=== PATIENT | male | born 1975 | race African-American/Black ===

== ENCOUNTER 2019-06-03 17:26 | Inpatient (IN) | payer OTHER ==
[~2019-06-03] VITALS: Ht 177.8 cm; Wt 89.8 kg
[~2019-06-03 17:26] MED LIST: ALEVE220 MG PO; APAP/CODEINE ELI5 M1; ASPIRIN325; FLEXERIL PO; LISINOPRIL10 MG PO; MOBIC15 MG PO; OXYCODONE HCL10 MG; OXYCONTIN10 M1; PERCOCET 5-3251 EACH PO; PHENERGAN 25 MG25 M1 PO; ZOFRAN ODT4 MG PO
[2019-06-03 17:41] VITALS: BP 166/107
[2019-06-03] MEDS ORDERED: HYDROCHLOROTHIA25 M2 PO (17:45)
--- NOTE | 2019-06-03 18:42 | NUR ---
PT LEFT THE UNIT WITH TRANSPORT TO RADIOLOGY.
[2019-06-03 18:43] LABS: HEMATOCRIT 35.8 % (42.0-52.0); HEMOGLOBIN 12.3 gm/dL (14.0-18.0); MCH 29.7 pg (26.0-34.0); MCHC 34.4 g/dL (28.0-37.0); MCV 86.3 fL (80.0-100.0); PLATELET COUNT 420 thou/uL (150-400); RBC 4.14 mil/uL (4.50-6.00); RDW 12.3 % (10.5-14.5); WBC 15.3 thou/uL (4.0-11.0)
[2019-06-03 18:51] LABS: CALCIUM 9.4 mg/dL (8.5-10.1); CREATININE 0.9 mg/dL (0.7-1.3)
[2019-06-03 18:57] LABS: ALBUMIN 3.7 g/dL (3.4-5.0); DIRECT BILIRUBIN 0.3 mg/dL (<0.1-0.3); TOTAL BILIRUBIN 1.3 mg/dL (<0.1-1.0); TOTAL PROTEIN 8.5 g/dL (6.4-8.2)
[2019-06-03 19:15] LABS: ANISOCYTOSIS SLIGHT
[2019-06-03 20:00] LABS: URINE BILIRUBIN NEGATIVE (Negative); URINE BLOOD NEGATIVE (Negative); URINE CLARITY CLEAR; URINE COLOR YELLOW; URINE GLUCOSE-RANDOM* NEGATIVE (Negative); URINE KETONES NEGATIVE (Negative); URINE LEUKOCYTES NEGATIVE (Negative); URINE NITRITE NEGATIVE (Negative); URINE PROTEIN (DIPSTICK) 2+ (Negative)
[2019-06-03 20:11] LABS: AMORPHOUS PHOSPHATES Moderate /LPF (None Seen); BACTERIA None Seen /HPF (None Seen); HYALINE CASTS 0-3 Few /LPF (None Seen); MUCUS >6 Heavy strn/LPF (None Seen); SQUAMOUS None Seen /LPF (0-3); URINE RBC None Seen /HPF (0-2); URINE WBC None Seen /HPF (0-5)
[2019-06-03 21:01] VITALS: BP 148/103
[2019-06-03 21:21] VITALS: BP 148/103
[2019-06-03 21:30] VITALS: BP 135/118
--- NOTE | 2019-06-03 22:00 | NUR ---
Pt. arrived to the unit from the emergency room accompanied by staff and his son. He is tearful at times and emotional support provided. Admission assessment and history is completed. Pt. c/o lower back pain and pain med given (see emar) with some relief noted. Assisted up to the bathroom and pt. did void.
--- NOTE | 2019-06-03 23:00 | NUR ---
Bladder was scanned as per order. Results were 321 mls.
[2019-06-04] VITALS (10 sets, daily range): BP systolic 100–160; BP diastolic 84–109
--- NOTE | 2019-06-04 03:30 | NUR ---
Pt. c/o pain to his lower back and is tearful. Bp is elevated. Had a dose of hydralazine (see emar) with no relief. Spoke to Maribel MARADIAGA/Dr. Srinivasan with new order for one time dose of dilaudid (see cpoe). Pt. also took a warm shower. Pain med given (see emar).
--- NOTE | 2019-06-04 04:05 | NUR ---
Pt. called out for pain medication for c/o pain in his lower back. Pain medication given (see emar). Upon reassessment pt. resting quietly with his eyes closed.
[2019-06-04 05:24] LABS: HEMATOCRIT 36.6 % (42.0-52.0); HEMOGLOBIN 12.2 gm/dL (14.0-18.0); MCH 28.9 pg (26.0-34.0); MCHC 33.4 g/dL (28.0-37.0); MCV 86.7 fL (80.0-100.0); RBC 4.22 mil/uL (4.50-6.00); RDW 12.5 % (10.5-14.5); WBC 13.5 thou/uL (4.0-11.0)
[2019-06-04 05:31] LABS: PROTIME 10.7 Seconds (9.3-11.4)
--- NOTE | 2019-06-04 05:45 | NUR ---
Dr. Rincon here and did I&D at the bedside this am.
[2019-06-04 05:55] LABS: ALBUMIN 3.6 g/dL (3.4-5.0); CALCIUM 8.9 mg/dL (8.5-10.1); CREATININE 0.9 mg/dL (0.7-1.3); TOTAL BILIRUBIN 1.1 mg/dL (<0.1-1.0); TOTAL PROTEIN 7.9 g/dL (6.4-8.2)
--- NOTE | 2019-06-04 06:20 | NUR ---
Pt. having trouble urinatng and bladder was scanned at 657 mls. Call placed to Maribel MARADIAGA with new orders received to insert camacho catheter.
--- NOTE | 2019-06-04 16:58 | NUR ---
1PM-7PM Shift. Received awake on bed. On NPO- pt informed and aware. A+Ox4. With relative at bedside. On room air. With camacho in place, draining well; output measured and recorded accordingly. With NS at 80cc/hr, infusing well at R wrist. With dressing at caterina-rectal area- intact. Assisted in ADLs. Pt for surgery today as reported by previous shift, consent to be signed. Procedure scheduled at [address] Rincon; consent signed by pt and informed re: OR time. Pt brought down to OR by staff. Came back to [facility] post I&D, pt A+O. Started diet at clear liquid- pt tolerated jello and broth, no nausea, no vomiting and no abdominal pain noted; no aspiration noted. Diet progressed to carb controlled diet as per Drs order. Vital signs stable. Complained of pain, due pain meds given as prescribed.
--- NOTE | 2019-06-05 04:01 | NUR ---
Pt. rested quietly at intervals during the night when checked on during frequent rounds. He has been given scheduled toradol (see emar) for c/o left sided buttocks pain with some relief noted. Dressing to left buttocks is dry and intact. No c/o nausea.
[2019-06-05 05:17] LABS: HEMATOCRIT 35.4 % (42.0-52.0); HEMOGLOBIN 11.8 gm/dL (14.0-18.0); MCHC 33.5 g/dL (28.0-37.0); MCV 86.5 fL (80.0-100.0); RBC 4.09 mil/uL (4.50-6.00); RDW 12.5 % (10.5-14.5); WBC 15.1 thou/uL (4.0-11.0)
[2019-06-05 05:35] LABS: CALCIUM 9.3 mg/dL (8.5-10.1); POTASSIUM 3.8 mmol/L (3.5-5.1)
[2019-06-05 07:54] VITALS: BP 150/117
[2019-06-05 15:26] VITALS: BP 178/110
[2019-06-05 19:21] VITALS: BP 158/115
--- NOTE | 2019-06-05 19:59 | NUR ---
PT A&OX4, VSS, PAIN IN [place] ANAL AREA. PATIENT TOLERATING DIET NO N/V. SHANKS REMOVED. NEW IV PLACED BY IV TEAM IN RIGHT FOREARM. PATIENT STATES HE WILL NOTIFY NIGHT STAFF WHEN HE URINATES. PATIENT STATES HE IS PASSING FLATUS AND FEELS THE URGE TO HAVE A BM AND WILL LET NIGHT STAFF KNOW. PATIENT BLOOD PRESSURE RUNNING HIGH, DOCTOR NOTIFIED, PATIENT HAS BEEN GIVEN PRN HYDRALAZINE. DOCTOR STATES HE WILL PUT IN ORDERS FOR ANTIHYPERTENSIVE. NO SIGNS OF DISTRESS, PATIENT HAS BEEN RESTING IN BED, WILL CONTINUE TO MONITOR.
[2019-06-06 00:44] VITALS: BP 152/100
--- NOTE | 2019-06-06 01:58 | NUR ---
PROGRESS PT PROGRESSING WITH POC. DENIES PAIN OR NEED FOR MEDICATION FOR LEFT BUTTOCK PAIN. UP AD VALERIO AMBULATING IN ROOM INDEPENDENTLY. IV IN RF INTACT INFUSING IVF'S WITHOUT DIFFICULTY. IV ANTIBIOTICS CONTINUE ORDERED. DRESSING TO LEFT BUTTOCK C/D/I I & D SITE NOT VISUALIZED. BP 158/115 AT 1999 10 MG HYDRALAZINE IVP GIVEN WITH LITTLE EFFECT DOWN TO 152/100. SUSHANT GONZALEZ SUCTION [employer]ATE [employer]ER NOTIFIED ORDER OBTAINED FOR A ONETIME DOSE OF 10 MG HYDRALAZINE PUSH, DOSE GIVEN AWAITING BP RECHECK AT THIS TIME, 5 MG PERCOCET ALSO GIVEN FOR A HEADACHE. SHANKS DC'D EARLIER TODAY AND PT VOIDED 200 CC'S OF SISI URINE NO BLADDER DISTENTION NOTED. CONTINUE TO POC.
[2019-06-06 03:31] VITALS: BP 146/110
[2019-06-06 04:25] LABS: CALCIUM 9.1 mg/dL (8.5-10.1); CREATININE 0.9 mg/dL (0.7-1.3); POTASSIUM 3.3 mmol/L (3.5-5.1)
[2019-06-06 04:34] LABS: HEMATOCRIT 36.9 % (42.0-52.0); HEMOGLOBIN 12.6 gm/dL (14.0-18.0); MCH 29.3 pg (26.0-34.0); RBC 4.29 mil/uL (4.50-6.00); RDW 12.4 % (10.5-14.5); WBC 9.2 thou/uL (4.0-11.0)
[2019-06-06 08:11] VITALS: BP 151/95
--- NOTE | 2019-06-06 12:55 | NUR ---
Received awake on bed. Due medications given as prescribed. Able to swallow tablets w/o difficulty. A+Ox4. Pt has been having elevated BP, Dr Freedman informed during his AM rounds re: elevated BP + hydralazine given with minimal decrease on BP after administration- Dr moody. Pt able to have bowel movement today. Up ad brie. Complained of pain, PRN pain meds given as prescribed. Voiding freely, able to ambulate to the bathroom. Dressing at caterina-rectal area C/D/I- photo to be taken. Assisted in ADLs. With NS infusing at 80cc/hr at R FA.
[2019-06-06] MEDS ORDERED: PERCOCET 5-3251 EACH PO (13:37)
[2019-06-06] MEDS ORDERED: LEVAQUIN 500 M500 M2 PO (13:37)
[2019-06-06] MEDS ORDERED: NORVASC10 MG PO (13:37)
[2019-06-06] MEDS ORDERED: FLAGYL500 M1 PO (13:38)
[2019-06-06 14:07] VITALS: BP 150/95
--- NOTE | 2019-06-07 14:02 | HC ---
[facility] [place] [address] CONSULTATION Name: GLORY PARISI Room #: 449-I [facility] IN M.R.#: [id number] Admission: 06/03/19 Attend Phys: Victor Manuel Srinivasan Discharge: 06/06/19 Date of : 73 Report #: [id number] THIS REPORT FOR: //name// CC: FAM physician/PCP Victor Manuel Srinivasan DATE OF SERVICE: 06/03/2019 ATTENDING PHYSICIAN: Dr. Srinivasan. CONSULTING PHYSICIAN: Dr. Canelo Rincon. REASON FOR CONSULTATION: Perirectal abscess. ASSESSMENT: 1. Perirectal abscess. 2. Hypertension. 3. Hyperlipidemia. 4. Degenerative disk disease. 5. Family history of colon cancer. PLAN: 1. Thank you for the consultation. We will follow along. 2. The patient does have a noticeable perirectal abscess on CT scan. The perirectal abscess is not as appreciable on exam; however, he does have a region of fluctuance in the perianal region. He is exquisitely tender in this region. Therefore, we will attempt a stab incision and drainage procedure at bedside. I did discuss with the patient beforehand that we may have to go to the operating room for an exam under anesthesia. 3. This gentleman does need a colonoscopy following resolution of his symptoms. HISTORY OF PRESENT ILLNESS: The patient is a very pleasant 43-year-old gentleman who presented to the ER with constipation. ER workup demonstrated perirectal abscess. His last bowel movement was about 3 days ago. He does take Percocet due to his back surgery 7 years ago, does not take any laxatives and stool softeners. He denies ever having a perirectal abscess but reports that the pain is currently a 10/10. He denies fevers, chills, nausea or vomiting. PAST MEDICAL HISTORY: 1. Degenerative joint disease. 2. Back surgery x 2. 3. Hypertension. 4. Hyperlipidemia. PAST SURGICAL HISTORY: Back surgery x 2. [facility] [address] [place] [address] CONSULTATION Name: GLORY PARISI Room #: 449-I [facility].#: [id number] Admission: 06/03/19 Attend Phys: Victor Manuel Srinivasan Discharge: 06/06/19 Date of : 73 Report #: [id number] SOCIAL HISTORY: Uses marijuana. He smokes. Denies alcohol use. FAMILY HISTORY: Dad at age 62 from colon cancer. REVIEW OF SYSTEMS: CONSTITUTIONAL: No fever. No chills. HEENT: Denies blurring of vision, double vision, headaches, hearing loss, sinus drainage or sore throat. Denies blurring of vision, double vision, headaches, hearing loss, sinus drainage or sore throat. CARDIOVASCULAR: Denies chest pain, palpitations, orthopnea or paroxysmal nocturnal dyspnea. RESPIRATORY: Denies cough, wheezing, hemoptysis, or shortness of air. GASTROINTESTINAL: No nausea. No vomiting. No diarrhea. No Heartburn. No nausea. No vomiting. No diarrhea. No Heartburn. GENITOURINARY: Denies dysuria or hematuria or kidney stones. No urinary frequency, urgency or incontinence. Denies dysuria or hematuria or kidney stones. No urinary frequency, urgency or incontinence. MUSCULOSKELETAL: No joint pain. No muscle pain. NEUROLOGICAL: Denies tremor, stroke or seizure. Denies tremor, stroke or seizure. HEMATOLOGIC / LYMPHATICS: Denies easy bruising, easy bleeding or enlarged lymph nodes. SKIN: No rash or ulceration. ENDOCRINE: No heat or cold intolerance PSYCHIATRIC: Denies depression, anxiety, or schizophrenia. PHYSICAL EXAMINATION: VITAL SIGNS: Temperature 99.4, pulse 98, respiratory rate 20, blood pressure 135/18, pulse ox is 97% on room air. GENERAL: No apparent distress, alert and oriented x3. HEENT: PERRLA, EOMI, MMM, NCAT. NECK: Supple. No LAD CARDIOVASCULAR: Regular rhythm and rate. Hemodynamically stable. Normal capillary refill. Regular rhythm and rate. Hemodynamically stable. Normal capillary refill. PULMONARY: Nonlabored. Clear to auscultation bilaterally ABDOMEN: Soft, nontender to palpation, no guarding, no rigidity, no rebound tenderness, no hernias. EXTREMITIES: Calves soft, nontender, no edema. SKIN: No rashes or bruises. PSYCHIATRIC: Normal mood and affect Normal mood and affect NEUROLOGICAL: Grossly intact. CN II-XII grossly intact. MUSCULOSKELETAL: 5/5 strength in upper extremities and lower extremities bilaterally LYMPHATICS: No cervical, inguinal, or supraclavicular lymphadenopathy. RECTAL: The patient is exquisitely tender along the right perianal region. [address] [address] CONSULTATION Name: GLORY PARISI Room #: 449-I [facility] IN ..#: [id number] Admission: 06/03/19 Attend Phys: Victor Manuel Srinivasan Discharge: 06/06/19 Date of : 73 Report #: [id number] There is a region of fluctuance here. No HELEN was performed as he was exquisitely tender. LABORATORY DATA: White blood count 15, hemoglobin 12, platelets 420. Sodium 135, potassium 4, creatinine 0.9. IMAGING: CT of the abdomen and pelvis: IMPRESSION: 1. Low attenuation perirectal fluid, which measures at least 5 x 5 x 4 cm and most likely represents a perirectal abscess and less likely evolving hematoma. A cystic rectal malignancy cannot be entirely excluded. 2. Mild bilateral inguinal lymphadenopathy is likely reactive to the perirectal fluid collection. 3. Scattered colonic diverticula without findings of acute diverticulitis. 4. Cholelithiasis without CT findings of acute cholecystitis. 5. L5-S1 severe degenerative disk disease and degenerative endplate sclerosis and cystic change. If there are signs and symptoms of infection, then diskitis and osteomyelitis cannot be entirely excluded. <ELECTRONICALLY SIGNED> By: Canelo Rincon MD 06/07/19 1402 [id number] 1540 Canelo Rincon MD /nt
== END 2019-06-06 17:00 | disposition home or self-care (01) | DRG 331 ==
LOC: ER 17:26 → EROBS 20:18 → 4W 21:12
PROVIDERS: Hospitalist; Nurse Practitioner; Nurse Practitioner Family; ADMIT Hospitalist
PROC: 0D9P00Z Drainage of Rectum with Drainage Device, Open Approach (ICD-10-PCS; principal; 2019-06-04)
DX: K61.1 Rectal abscess (principal); I10 Essential (primary) hypertension; E78.00 Pure hypercholesterolemia, unspecified; K59.00 Constipation, unspecified; M19.90 Unspecified osteoarthritis, unspecified site; R59.0 Localized enlarged lymph nodes; K57.90 Diverticulosis of intestine, part unspecified, without perforation or abscess without bleeding; K80.20 Calculus of gallbladder without cholecystitis without obstruction; E78.5 Hyperlipidemia, unspecified; M51.37 Other intervertebral disc degeneration, lumbosacral region; F17.210 Nicotine dependence, cigarettes, uncomplicated; Z79.899 Other long term (current) drug therapy; Z88.8 Allergy status to other drugs, medicaments and biological substances; Z80.0 Family history of malignant neoplasm of digestive organs
CPT/HCPCS: 10040; 50101; 50386; 62110; 62900; 70005

== ENCOUNTER 2019-08-13 13:57 | Inpatient (IN) | payer OTHER ==
[~2019-08-13] VITALS: Ht 152.4 cm; Wt 92.5 kg
--- NOTE | ~2019-08-13 | O ---
[facility] [place] [address] OPERATIVE REPORT Name: GLORY PARISI Room #: 457-P ADM IN M.R.#: [id number] Admission: 08/13/19 Attend Phys: Mitchel Green, Discharge: Date of : 73 Report #: [id number] THIS REPORT FOR: //name// CC: [facility] physician/PCP Mitchel Green DATE OF SERVICE: 08/14/2019 PREOPERATIVE DIAGNOSIS: Perirectal abscess. POSTOPERATIVE DIAGNOSIS: Perirectal abscess. OPERATION: Incision and drainage of perirectal abscess. SURGEON: Mitchel Green MD ANESTHESIA: General. ESTIMATED BLOOD LOSS: Minimal. SPECIMEN: None. DESCRIPTION OF PROCEDURE: After informed consent was obtained, the patient was brought to the operating room and placed supine. SCDs were placed and working, preoperative antibiotics were administered, general anesthesia was induced. The patient was placed in the dorsal lithotomy position and the area was prepped and draped in the usual sterile fashion. Digital rectal exam was performed. This demonstrated fullness, especially on the right side. The right perianal skin was incised with cautery, 1 cm from the anal verge. This area was probed and a pus pocket was encountered and this drained a copious amount of ngozi pus. I then broke up loculations bluntly. This tracked to the midline and over to the right side, corresponding with the CT findings. I then made a counter incision on the right side and placed a 1/2 inch Walsh drain through the openings. The area was then copiously irrigated and packed with sterile gauze. Sterile dressings were applied. COMPLICATIONS: None. DISPOSITION: The patient was taken to recovery in satisfactory condition. By: [id number] Mitchel Green MD /nt
[~2019-08-13 13:57] MED LIST changes: +FLAGYL500 M1 PO; +HYDROCHLOROTHIA25 M2 PO; +LEVAQUIN 500 M500 M2 PO; +NORVASC10 MG PO
[2019-08-13 13:58] VITALS: BP 194/111
[2019-08-13] MEDS ORDERED: PERCOCET 5-3251 EACH PO (14:15)
[2019-08-13 14:48] LABS: BASOPHILS 0.5 % (0.0-2.0); EOSINOPHILS 0.2 % (0.0-3.0); HEMATOCRIT 37.2 % (42.0-52.0); HEMOGLOBIN 12.3 gm/dL (14.0-18.0); LYMPHOCYTES 16.2 % (24.0-44.0); MCH 29.4 pg (26.0-34.0); MCHC 33.1 g/dL (28.0-37.0); MONOCYTES 9.9 % (1.0-8.0); PLATELET COUNT 328 thou/uL (150-400); POLYS 73.2 % (36.0-66.0); RBC 4.18 mil/uL (4.50-6.00); RDW 13.3 % (10.5-14.5); WBC 13.6 thou/uL (4.0-11.0)
[2019-08-13 14:55] LABS: CALCIUM 9.5 mg/dL (8.5-10.1); CREATININE 1.1 mg/dL (0.7-1.3); POTASSIUM 3.5 mmol/L (3.5-5.1)
[2019-08-13 15:01] LABS: ALBUMIN 3.8 g/dL (3.4-5.0); TOTAL BILIRUBIN 0.8 mg/dL (<0.1-1.0); TOTAL PROTEIN 8.1 g/dL (6.4-8.2)
[2019-08-13 17:01] VITALS: BP 174/98
[2019-08-13 18:00] VITALS: BP 172/113
[2019-08-13 20:35] VITALS: BP 160/91
--- NOTE | 2019-08-14 03:54 | NUR ---
PT CARE ASSUMED AT 1900 WITH PT IN BED.PT ARRIVED UNIT AT END OF PREVIOUS SHIFT AND ADMISSION STARTED.STAFF COMPLETED ADMISSION.PT ADMITTED WITH COMPLAIN OF PAIN ON BACK AND PERIANAL ABSCESS.HAD A 3MONTHS AGO FOR RECTAL ULCER AND STATES PRESENT PAIN IS SAME PREVIOUS PAIN.PT COMPLAINED OF PAIN AND DR NENA GUERRERO AND OXY/APAP OREDERED FOR PAIN AND BLOOD PRESSURE MEDICATION STARTED.PT WAS NPO FROM MIDNIGHT FOR POSSIBLE I&D TODAY.PT IS UP AD VALERIO AND A/O X4.CONTINUE TO MONITOR
[2019-08-14 04:42] VITALS: BP 169/102
[2019-08-14 08:00] VITALS: BP 181/111
[2019-08-14 12:15] VITALS: BP 162/113
--- NOTE | 2019-08-14 14:06 | NUR ---
ASSUMED CARES AT 0700. PT AWAKE, ALERT AND ORIENTED *4. BP ELEVATED THIS AM, PT C/O 10/10 PAIN ON THE RECTUM, PAIN MEDICATION ADMINISTERED Q3H NEEDED. PT ENCOURAGED TO SHIFT POSITIONS, ROOM QUIET AND / GIRLFRIEND AT THE BEDSIDE. PT REMAINS NPO, LEFT FOR I&D AT 1355, CONSENTS SIGNED. LEFT AC IV REMAINS INTACT AND PATENT, SL. NEW IV STARTED ON LEFT FOREARM FOR PROCEDURE. PT REMAINS UPADLIB. Q1H VISUAL CHECKS. CALL LIGHT WITHIN REACH
[2019-08-14 15:59] VITALS: BP 159/96
[2019-08-14 16:00] VITALS: BP 163/97
[2019-08-14 20:28] VITALS: BP 149/91
--- NOTE | 2019-08-15 04:27 | NUR ---
ASSESSMENT: PT REMAIN ALERT AND ORIENT TIMES FOUR. UP TO BR WITH STEADY GAIT. NO BM THIS SHIFT. VOIDING PER URINAL. MS GIVEN FOR PAIN WITH ADEQUATE RELIEF. SCANT AMT OF BLEEDING PER RECTUM (I&D AREA), DRESSING CHANGED. 4X4 KERLIX APPLIED. AT THE BEDSIDE DURING THE NIGHT. SLOW PROGRESS TOWARDS DC GOAL, WILL CONTINUE TO MONITOR.
[2019-08-15 09:00] VITALS: BP 140/102
[2019-08-15] MEDS ORDERED: AUGMENTIN 875-1 EACH PO (10:15)
[2019-08-15] MEDS ORDERED: PERCOCET PO (10:16)
[2019-08-15] MEDS ORDERED: COLACE100 MG PO (10:16)
[2019-08-15] MEDS ORDERED: METAMUCIL1 EAC1 PO (10:17)
[2019-08-15 13:30] VITALS: BP 140/102
--- NOTE | 2019-08-15 13:32 | NUR ---
Chart reveiwed and case discussed with the care team. Pt is up ad brie in his room and steady on his feet. Nursing to instruction pt and sign other on dressing change. All parties anticipating dc to home today. No cm intervention indicated at this time.
--- NOTE | 2019-08-15 15:00 | NUR ---
Patient discharged at approximately 1230 today after verbalizing an understanding of all discharge instructins and signing appropriate paperwork. Vital signs were stable, LSCTA, BS x's 4, abdomen soft and non-tender; he denies pain.
== END 2019-08-15 15:31 | disposition home or self-care (01) | DRG 346 ==
LOC: ER 13:57 → EROBS 16:11 → 4W 17:48 → ENTRNSPT 08-15 13:14 → EDTRNSPTSTS 08-15 13:16 → 4W 08-15 15:31
PROVIDERS: Emergency Medicine; ADMIT Surgery
PROC: 0D9P0ZZ Drainage of Rectum, Open Approach (ICD-10-PCS; principal; 2019-08-14)
DX: K61.1 Rectal abscess (principal); M19.90 Unspecified osteoarthritis, unspecified site; F12.90 Cannabis use, unspecified, uncomplicated; I10 Essential (primary) hypertension; E78.00 Pure hypercholesterolemia, unspecified; Z88.6 Allergy status to analgesic agent; Z80.0 Family history of malignant neoplasm of digestive organs; Z28.21 Immunization not carried out because of patient refusal; Z79.899 Other long term (current) drug therapy
CPT/HCPCS: 10040; 50010; 50101; 50386; 56526; 62110; 62900; 70005

== ENCOUNTER 2021-04-12 08:25 | Inpatient (IN) | payer OTHER ==
[~2021-04-12] VITALS: Ht 172.7 cm; Wt 90.0 kg
[~2021-04-12 08:25] MED LIST changes: +AUGMENTIN 875-1 EACH PO; +COLACE100 MG PO; +METAMUCIL1 EAC1 PO; +PERCOCET PO
[2021-04-12 08:29] VITALS: BP 178/106
[2021-04-12 08:58] LABS: ABSOLUTE NEUTROPHILS 13.2 thou/uL (1.4-8.2); BASOPHILS 0.5 % (0.0-2.0); EOSINOPHILS 0.1 % (0.0-3.0); HEMATOCRIT 36.8 % (42.0-52.0); HEMOGLOBIN 12.5 gm/dL (14.0-18.0); LYMPHOCYTES 8.9 % (24.0-44.0); MCH 29.7 pg (26.0-34.0); MCHC 33.9 g/dL (28.0-37.0); MCV 87.8 fL (80.0-100.0); MONOCYTES 6.8 % (1.0-8.0); PLATELET COUNT 361 thou/uL (150-400); POLYS 83.7 % (36.0-66.0); WBC 15.8 thou/uL (4.0-11.0)
[2021-04-12 09:09] LABS: CALCIUM 9.2 mg/dL (8.5-10.1); POTASSIUM 3.9 mmol/L (3.5-5.1)
[2021-04-12 09:15] LABS: ALBUMIN 3.9 g/dL (3.4-5.0); TOTAL BILIRUBIN 0.8 mg/dL (0.2-1.0); TOTAL PROTEIN 8.1 g/dL (6.4-8.2)
[2021-04-12 11:33] VITALS: BP 151/103
--- NOTE | 2021-04-12 13:29 | NUR ---
PT WAS BROUGHT UP FROM THE ER WITH ABCESS IN THE COLON. PT WILL BE GOING TO THE OR SHORTLY. PT WAS BROUGHT UP AT 1140 AND WENT TO PREOP AT 1200. I WAS UNABLE TO OBTAIN ALL INFORMATION ON ADMISSION BEFORE PT LEFT THE UNIT. I WILL GET MORE INFO ONCE HE RETURNS FROM PACU.
--- NOTE | 2021-04-12 16:13 | NUR ---
ASSESSMENT: CM REVIEWED CHART. PT WAS ADMITTED S/P I AND D OF RECTAL ABSESS. PT REPORTS LIVES IN AN APT WITH HIS SON. PT REPORTS USING A CANE FOR AMBULATION. PT REPORTS THAT HE HAS A PCP AT [facility]. CM DISCUSSED ROLE. PT REPORTS BEING INDEPENDENT AND DOES NOT ANTICIPATE ANY NEEDS FROM CM.
[2021-04-12 20:01] VITALS: BP 148/103
--- NOTE | 2021-04-13 04:15 | NUR ---
PT IS A/O X4 AND IS UP AD VALERIO. BP ELEVATED THIS NOC. NOTIFIED PHYSICIAN. HOME MEDS RESTARTED. PT C/O PAIN. PRN PAIN MEDICATION GIVEN DIRECTED. MEDICATIONS GIVEN PER MAR. PACKING TO ABSCESS IS WITH BLOODY DRAINAGE. CALL LIGHT IS WITHIN REACH. WILL CONTINUE TO MONITOR.
[2021-04-13 07:45] VITALS: BP 151/90
[2021-04-13 12:56] VITALS: BP 151/90
--- NOTE | 2021-04-13 13:10 | NUR ---
CONTINUED CARE OF PT AT 0700 THIS MORNING. PT HAD NO CHANGES OVERNIGHT. PT IS TO BE DISCHARGED LATER TODAY. ASSESSMENTS NOTED IN CHART AND OTHERWISE UNREMARKABLE, IV IN LEFT FA WITH SL. CALL LIGHT AND OTHER NEEDS ARE WITHIN REACH. PT DOES AMBULATE INDEP. MEDS AND TX GIVEN NEEDED AND SCHEDULED.
--- NOTE | 2021-04-14 10:43 | O ---
[facility] [place] [address] OPERATIVE REPORT Name: GLORY PARISI Room #: 442-P [facility] IN M.R.#: [id number] Admission: 04/12/21 Attend Phys: Mitchel Green, Discharge: 04/13/21 Date of : 73 Report #: [id number] THIS REPORT FOR: cc: MONICA - Lakeisha family physician/PCP FAM - No family physician/PCP Mitchel Green MD ~ DATE OF SERVICE: 04/12/2021 PREOPERATIVE DIAGNOSIS: Ischiorectal abscess. POSTOPERATIVE DIAGNOSIS: Ischiorectal abscess. OPERATION: Incision and drainage of ischiorectal abscess. SURGEON: Mitchel Green MD ANESTHESIA: General. ESTIMATED BLOOD LOSS: Minimal. SPECIMENS: None. DESCRIPTION OF PROCEDURE: After informed consent was obtained, the patient was brought to the operating room and placed supine. SCDs were placed and working, preoperative antibiotics were administered, general anesthesia was induced. The patient was then placed in lithotomy position. The area was then prepped and draped in the usual sterile fashion. I made an incision in the perianal skin on the left side in the posterior anus approximately 2 cm from the anal verge. Immediately, there was a howard of ngozi pus. This was suctioned out. Loculations were broken up bluntly. I then irrigated the area with normal saline. It was packed with 1-inch iodoform gauze. Sterile dressings were applied. COMPLICATIONS: None. DISPOSITION: The patient was taken to recovery in satisfactory condition. <ELECTRONICALLY SIGNED> By: Mitchel Green MD 04/14/21 1043 1552 1752 Mitchel Green MD /nt
== END 2021-04-13 15:08 | disposition home or self-care (01) | DRG 349 ==
LOC: ER 08:25 → EROBS 10:22 → 4S 11:55
PROVIDERS: Emergency Medicine; ADMIT Surgery; ATTEND Surgery
PROC: 0D9Q0ZZ Drainage of Anus, Open Approach (ICD-10-PCS; principal; 2021-04-12)
DX: K61.0 Anal abscess (principal); M19.90 Unspecified osteoarthritis, unspecified site; E78.00 Pure hypercholesterolemia, unspecified; I10 Essential (primary) hypertension; F17.210 Nicotine dependence, cigarettes, uncomplicated; Z20.822 Contact with and (suspected) exposure to COVID-19; Z79.899 Other long term (current) drug therapy
CPT/HCPCS: 10195; 50010; 50101; 50386; 70005